=== PATIENT | female | born 1990 | race Caucasian/White ===

== ENCOUNTER 2017-02-18 00:42 | Emergency (ER) | payer MEDICAID ==
[2017-02-18] MEDS ORDERED: MORPHINE 10 MG/ML VIAL IVP STA (01:00)
[2017-02-18] MEDS ORDERED: SODIUM CHLORIDE 0.9% 1,000 ML IV ONE (01:00)
[2017-02-18] MEDS ORDERED: ONDANSETRON 4 MG/2 ML VIAL IVP STA (01:02)
[2017-02-18 01:16] LABS: BASOPHILS % (AUTO) 0.6 %; EOSINOPHILS % (AUTO) 1.4 %; HGB - HEMOGLOBIN 13.3 g/dL (12.0-16.0); LYMPHOCYTES % (AUTO) 35.1 %; MEAN CORPUSCULAR HEMOGLOBIN 28.3 pg (27.0-31.0); MEAN CORPUSCULAR HGB CONC 33.5 g/dL (32.0-36.0); MEAN CORPUSCULAR VOLUME 84.7 fL (81.0-99.0); MEAN PLATELET VOLUME 8.6 fL (7.9-10.8); MONOCYTES % (AUTO) 10.6 %; NEUTROPHILS % (AUTO) 52.3 %; PLT - PLATELET COUNT 450 10^3/uL (130-450); RED BLOOD COUNT 4.68 10^6/uL (4.20-5.40); RED CELL DISTRIBUTION WIDTH 13.2 % (12.0-15.0); WHITE BLOOD COUNT 16.8 x10^3/uL (4.8-10.8)
[2017-02-18 01:24] LABS: ABNORMAL LYMPHS % (MANUAL) 0 %
[2017-02-18 01:26] LABS: BILIRUBIN,DIRECT 0.1 mg/dL (0.1-0.5); BILIRUBIN,TOTAL 0.5 mg/dL (0.2-1.0); CALCIUM 9.5 mg/dL (8.5-10.3); CREATININE 0.6 mg/dL (0.4-1.0)
[2017-02-18 01:55] LABS: BAND NEUTROPHILS % (MANUAL) 3 %; BASOPHILS # (MANUAL) 0.2 10^3/uL (0-0.1); BASOPHILS % (MANUAL) 1 %; DIFFERENTIAL COMMENT MANUAL DIFFERENTIAL; EOSINOPHILS # (MANUAL) 0.7 10^3/uL (0-0.7); LYMPHOCYTES # (MANUAL) 6.2 10^3/uL (1.5-3.5); LYMPHOCYTES % (MANUAL) 31 %; MONOCYTES # (MANUAL) 1.5 10^3/uL (0.0-1.0); NEUTROPHILS # (MANUAL) 8.2 10^3/uL (1.5-6.6); NEUTROPHILS % (MANUAL) 46 %; PLATELET ESTIMATE, MANUAL NORMAL (130-450,000) (NORMAL); RBC MORPHOLOGY (MULTIPLE) NORMAL APPEARANCE (NORMAL)
[2017-02-18 03:04] VITALS: BP 120/74
[2017-02-18 03:09] LABS: BILIRUBIN,URINE NEGATIVE (NEGATIVE); GLUCOSE, URINE (UA) NEGATIVE (NEGATIVE); KETONES,URINE (UA) NEGATIVE (NEGATIVE); LEUKOCYTE ESTERASE, URINE NEGATIVE (NEGATIVE); NITRITE,URINE POSITIVE (NEGATIVE); OCCULT BLOOD,URINE NEGATIVE (NEGATIVE); PH,URINE 5.5 PH (5.0-7.5); PROTEIN,URINE NEGATIVE (NEGATIVE); UROBILINOGEN,URINE 0.2 (NORMAL) E.U./dL (NORMAL)
[2017-02-18 03:10] LABS: CLARITY,URINE HAZY (CLEAR)
--- NOTE | 2017-02-18 03:16 | Ultrasound Preliminary Report ---
Exam: US ABDOMEN LIMITED IMPRESSION: 1. Gallbladder appears normal. 2. Suspect mildly fatty liver. [facility] SITE ID: [id number]
[2017-02-18 03:20] LABS: BACTERIA,URINE Many /HPF (None Seen); RBC,URINE 0-5 /HPF (0-5); SQUAMOUS EPITHELIAL CELL,UR MOD Squamous (<= Few)
--- NOTE | 2017-02-18 03:28 | ED Physician Documentation ---
PD HPI ABD PAIN - Stated complaint Stated Complaint: CHEST PAIN - Chief complaint Chief Complaint: Cardiac - History obtained from History obtained from: Patient, Family - History of Present Illness Timing - onset: Today Timing - details: Abrupt onset Quality: Cramping, Aching, Sharp Location: RUQ, Epigastric Radiation: Chest Worsened by: Position, Palpation Associated symptoms: No: Fever, Nausea, Vomiting, Diarrhea, Constipation, Near syncope / syncope Similar symptoms before: Has not had sx before Recently seen: Not recently seen - Additional information Additional information: Patient is a 26 year old female presenting to the emergency department for epigastric pain and pressure. patient states that the pain woke her up from sleep. patient states that it is in her epigastric region with radiation to her back. patient states that it feels like pressure. patient states that she has never had symptoms like this before. Review of Systems Constitutional: denies: Fever, Chills Eyes: denies: Decreased vision, Photophobia Ears: reports: Reviewed and negative Nose: denies: Congestion, Epistaxis Throat: denies: Sore throat Cardiac: reports: Chest pain / pressure. denies: Palpitations, Pedal edema Respiratory: denies: Dyspnea, Cough, Wheezing GI: reports: Abdominal Pain, Nausea. denies: Vomiting, Constipation, Diarrhea : denies: Dysuria, Frequency Musculoskeletal: reports: Back pain. denies: Neck pain, Extremity pain, Joint pain, Extremity swelling Neurologic: denies: Generalized weakness, Focal weakness, Numbness Immunocompromised: denies: Immunocompromised PD PAST MEDICAL HISTORY - Present Medications Home Medications: Ambulatory Orders Medication Instructions Recorded Confirmed Acetaminophen [Tylenol Extra 500 mg PO DAILY 02/18/17 02/18/17 Strength] Acyclovir 400 mg PO DAILY 02/18/17 02/18/17 Ciprofloxacin HCl 250 mg PO BID #6 tablet 02/18/17 Cyclobenzaprine [Flexeril] 10 mg PO DAILY 02/18/17 02/18/17 Naproxen Sodium 220 mg PO BID 02/18/17 02/18/17 Sertraline [Zoloft] 50 mg PO DAILY 02/18/17 02/18/17 - Allergies Allergies/Adverse Reactions: Allergies Allergy/AdvReac Type Severity Reaction Status Date / Time No Known Drug Allergies Allergy Verified 02/18/17 00:54 PD ED PE NORMAL - General General: Alert and oriented X 3 - HEENT HEENT: Atraumatic, PERRL - Neck Neck: Supple, no meningeal sign, No JVD - Cardiac Cardiac: RRR, No murmur - Respiratory Respiratory: No respiratory distress - Derm Derm: Normal color, Warm and dry, No rash - Extremities Extremities: No deformity, Normal ROM s pain - Neuro Neuro: Alert and oriented X 3, No motor deficit, No sensory deficit, Normal speech Eye Opening: Spontaneous Motor: Obeys Commands Verbal: Oriented GCS Score: 15 PD ED PE EXPANDED - General General: Alert, In Pain - HEENT HEENT: Dry mucous membranes - Abdomen Abdomen: Tender to palpation, RUQ, Epigastric, Other (obese) Results - Vitals Vitals: Vital Signs - 24 hr 02/18/17 02/18/17 02/18/17 00:50 01:27 01:39 Temperature 36.7 C Heart Rate 85 83 86 Respiratory 22 17 16 Rate Blood Pressure 153/98 H 142/104 H 139/90 H O2 Saturation 100 99 94 02/18/17 02/18/17 02/18/17 01:55 02:06 02:44 Temperature Heart Rate 97 93 90 Respiratory 17 17 17 Rate Blood Pressure 125/75 138/79 H O2 Saturation 96 96 94 02/18/17 02/18/17 02/18/17 02:55 03:03 03:25 Temperature 36.5 C Heart Rate 88 Respiratory 18 18 Rate Blood Pressure 120/74 120/74 O2 Saturation 100 02/18/17 02/18/17 03:28 04:46 Temperature Heart Rate 88 83 Respiratory 18 16 Rate Blood Pressure O2 Saturation 94 95 Oxygen O2 Source Room air - EKG (time done) 0053 Rate: Rate (enter#) (89) Rhythm: NSR [place]: Normal Intervals: Normal [place] QRS: Normal Ischemia: Normal ST segments Compare to prior EKG: Old EKG unavailable - Labs Labs: Laboratory Tests 02/18/17 02/18/17 02/18/17 00:50 00:50 00:50 WBC 16.8 H RBC 4.68 Hgb 13.3 Hct 39.7 MCV 84.7 MCH 28.3 MCHC 33.5 RDW 13.2 Plt Count 450 MPV 8.6 Neut # Not Reportable Lymph # Not Reportable [place] # Not Reportable Eos # Not Reportable Baso # Not Reportable Absolute Nucleated RBC Not Reportable Total Counted 100 Band Neuts % (Manual) 3 Reactive Lymphs % (Man) 6 Abnorm Lymph % (Manual) 0 Nucleated RBC % Not Reportable Neutrophils # (Manual) 8.2 H Lymphocytes # (Manual) 6.2 H Monocytes # (Manual) 1.5 H Eosinophils # (Manual) 0.7 Basophils # (Manual) 0.2 H Differential Comment MANUAL DIFFERENTIAL Platelet Estimate NORMAL (130-450,000) RBC Morph Micro Appear NORMAL APPEARANCE D-Dimer Sodium 139 Potassium 3.8 Chloride 102 Carbon Dioxide 25 Anion Gap 12.0 BUN 16 Creatinine 0.6 Estimated GFR (MDRD) 121 Glucose 99 Calcium 9.5 Total Bilirubin 0.5 Direct Bilirubin 0.1 AST 41 ALT 37 Alkaline Phosphatase 45 Troponin I < 0.04 Total Protein 8.0 Albumin 4.0 Globulin 4.0 Albumin/Globulin Ratio 1.0 Lipase 90 H HCG, Quant Urine Color Urine Clarity Urine pH Ur Specific [place] Urine Protein Urine Glucose (UA) Urine Ketones Urine Occult Blood Urine Nitrite Urine Bilirubin Urine Urobilinogen Ur Leukocyte Esterase Urine RBC Urine WBC Ur Squamous Epith Cells Urine Bacteria Ur Microscopic Review Urine Culture Comments 02/18/17 02/18/17 02/18/17 00:50 00:50 03:01 WBC RBC Hgb Hct MCV MCH MCHC RDW Plt Count MPV Neut # Lymph # [place] # Eos # Baso # Absolute Nucleated RBC Total Counted Band Neuts % (Manual) Reactive Lymphs % (Man) Abnorm Lymph % (Manual) Nucleated RBC % Neutrophils # (Manual) Lymphocytes # (Manual) Monocytes # (Manual) Eosinophils # (Manual) Basophils # (Manual) Differential Comment Platelet Estimate RBC Morph Micro Appear D-Dimer 258.7 H Sodium Potassium Chloride Carbon Dioxide Anion Gap BUN Creatinine Estimated GFR (MDRD) Glucose Calcium Total Bilirubin Direct Bilirubin AST ALT Alkaline Phosphatase Troponin I Total Protein Albumin Globulin Albumin/Globulin Ratio Lipase HCG, Quant 0.87 Urine Color YELLOW Urine Clarity HAZY Urine pH 5.5 Ur Specific [place] 1.025 Urine Protein NEGATIVE Urine Glucose (UA) NEGATIVE Urine Ketones NEGATIVE Urine Occult Blood NEGATIVE Urine Nitrite POSITIVE H Urine Bilirubin NEGATIVE Urine Urobilinogen 0.2 (NORMAL) Ur Leukocyte Esterase NEGATIVE Urine RBC 0-5 Urine WBC 0-3 Ur Squamous Epith Cells MOD Squamous H Urine Bacteria Many H Ur Microscopic Review INDICATED Urine Culture Comments NOT INDICATED - Rads (name of study) abd ultrasound Radiology: Final report received (no acute abnormality) ct abdomen and pelvis Radiology: Final report received (no acute abnormality) PD MEDICAL DECISION MAKING - ED course Complexity details: reviewed old records, reviewed results, re-evaluated patient , considered differential, d/w patient, d/w family ED course: Patient was seen and examined at bedside. IV access was gained and labs were drawn. Patient was treated with morphine, zofran and fluid bolus. ultrasound was ordered. patient was found to have a leukocytosis and a mildly elevated lipase. Patient's ultrasound was within normal limits so CT was ordered. Patient's ct was within normal limits. Patient was found to have bacteria in her urine and was treated with cipro. patient remained pain free over the 5 hours she was in the emergency department. patient required no further work up and was stable for discharge with outpatient follow up. Departure - Departure Disposition: 01 Home, Self Care Clinical Impression: Abdominal pain, Urinary tract infection Condition: Good Instructions: ED Abdominal Pain Unkn Cause Follow-Up: primary,care provider [Other] - Within 3 Days Prescriptions: Ciprofloxacin HCl 250 mg PO BID #6 tablet Comments: Your CT and ultrasound were within normal limits. You were found to have a mild urinary tract infection. I would suspect that you had a gallstone but there is no evidence of a retained gallstone or intraabdominal infection. It is important that you cut out fried and fatty foods. You should stay well hydrated and can take motrin or tylenol as needed for pain. You should follow up with your doctor if your symptoms persist. you may return to the emergency department at any time for new, worsening or uncontrollable symptoms. Discharge Date/Time: 02/18/17 05:08
--- NOTE | 2017-02-18 03:33 | Ultrasound Report ---
EXAM: ABDOMEN ULTRASOUND LIMITED, RUQ EXAM DATE: 02/18/2017 03:01 AM. CLINICAL HISTORY: Abdominal pain, leukocytosis. COMPARISON: None. TECHNIQUE: Real-time scanning was performed with static images obtained. FINDINGS: Liver: Echogenic without gross focal abnormality seen. Main portal vein flow: Hepatopetal. Gallbladder: Normal. No stones, wall thickening, or sonographic Gambino's sign. Biliary System: CBD measures 3 mm. No intrahepatic or extrahepatic ductal dilatation. Other: Visualized portions of the pancreas and right kidney are unremarkable. IMPRESSION: 1. Gallbladder appears normal. 2. Suspect mildly fatty liver. [facility] Referring Provider Line: [phone] SITE ID: [id number]
[2017-02-18] MEDS ORDERED: IOPAMIDOL-300 100 ML VIAL ONE (03:47)
[2017-02-18] MEDS ORDERED: IOPAMIDOL-300 100 ML VIAL IVP ONE (04:00)
--- NOTE | 2017-02-18 04:26 | CT Report ---
EXAM: CT ABDOMEN AND PELVIS EXAM DATE: 02/18/2017 04:10 AM. CLINICAL HISTORY: Epigastric pain, leukocytosis, elevated lipase . COMPARISONS: Ultrasound same morning. TECHNIQUE: Routine helical CT imaging was performed through the abdomen and pelvis. IV contrast: Yes . Enteric contrast: No . Reconstructions: Coronal and sagittal. In accordance with CT protocol optimization, one or more of the following dose reduction techniques w ere utilized for this exam: automated exposure control, adjustment of mA and/or KV based on patient s ize, or use of iterative reconstructive technique. FINDINGS: Lung Bases: Unremarkable. Liver: Minimally fatty. No suspicious masses. Gallbladder/Bile Ducts: Unremarkable. Spleen: Unremarkable. Pancreas: Unremarkable. Adrenal Glands: Unremarkable. Kidneys: Unremarkable. No suspicious masses or hydronephrosis. Peritoneal Cavity/Bowel: No bowel obstruction or inflammatory process seen. No free air or significan t free fluid. No masses or adenopathy. The appendix is normal. No excessive stool burden. Pelvic Organs: Bladder, uterus, and adnexa appear unremarkable. Vasculature: No aneurysms or other significant abnormality. Bones: No significant abnormality. Other: None. IMPRESSION: Negative abdomen and pelvis CT. [facility] Referring Provider Line: [phone] SITE ID: [id number]
[2017-02-18] MEDS ORDERED: CIPROFLOXACIN 250 MG TABLET PO STA (04:37)
== END 2017-02-18 05:08 | disposition home or self-care (01) ==
LOC: ED 00:42
DX: R10.11 Right upper quadrant pain (principal); R10.13 Epigastric pain; N39.0 Urinary tract infection, site not specified; D72.829 Elevated white blood cell count, unspecified
CPT/HCPCS: 36415; 74177; 76705; 80053; 81001; 82248; 83690; 84484; 84702; 85025; 85379; 93005; 96361; 96374; 96375; 99284; 99285; A9270; Q9967; 81003; 87086